=== PATIENT | female | born 2000 | race Caucasian/White ===

== ENCOUNTER 2022-01-28 17:05 | Emergency (ER) | payer BC ==
[~2022-01-28] VITALS: Ht 175.3 cm; Wt 65.9 kg
[2022-01-28 17:14] VITALS: TEMP 99.7
[2022-01-28 17:59] VITALS: BP 130/66; PULSE 105
== END 2022-01-28 17:59 | disposition home or self-care (01) ==
LOC: COL.ER 17:05
DX: B34.9 Viral infection, unspecified (principal); Z20.822 Contact with and (suspected) exposure to COVID-19; Z28.310 Unvaccinated for COVID-19

== ENCOUNTER 2022-04-18 01:05 | Emergency (ER) | payer BC ==
[~2022-04-18] VITALS: Ht 175.3 cm; Wt 68.2 kg
[2022-04-18 01:40] VITALS: TEMP 97.9
[2022-04-18] MEDS ORDERED: NORCO 325 MG-51 TAB PO (02:21)
[2022-04-18 03:20] VITALS: BP 120/81; PULSE 80
== END 2022-04-18 03:20 | disposition home or self-care (01) ==
LOC: COL.ER 01:05
DX: S52.022A Displaced fracture of olecranon process without intraarticular extension of left ulna, initial encounter for closed fracture (principal); Z28.310 Unvaccinated for COVID-19; W01.0XXA Fall on same level from slipping, tripping and stumbling without subsequent striking against object, initial encounter; Y93.02 Activity, running